=== PATIENT | female | born 1975 | race Caucasian/White ===

== ENCOUNTER 2021-09-24 16:39 | Outpatient (CLI) | payer OTHER ==
[2021-09-24 18:01] LABS: Hemoglobin 13.2 g/dL (12.0-15.5); Mean Corpuscular Hemoglobin 30.2 pg (27.0-33.0); Mean Corpuscular Volume 91.5 fl (81.6-98.3); Mean Platelet Volume 10.6 fl (7.4-10.4); Platelet Count 361 10x3/uL (150-450); RBC Distribution Width 12.9 % (11.5-14.5); Red Blood Cell (RBC) Count 4.37 10x6/uL (3.90-5.03); White Blood Cell (WBC) Count 10.3 10x3/uL (3.5-10.5)
[2021-09-24 18:04] LABS: BHCG - Serum Negative (NEGATIVE); Pregs Control Background? CLEAR/WHITE (CLR/WHITE); Pregs Control Bar Appear? YES (CONTROL BAR)
[2021-09-24 18:12] LABS: Anion Gap 13 mmol/L (10-20); BUN (Urea Nitrogen) 13 mg/dL (7.0-18.7); Calc. Creatinine Clearance 0 mL/min (70-130); Calcium 9.1 mg/dL (7.8-10.44); Carbon Dioxide 22 mmol/L (22-29); Chloride 108 mmol/L (98-107); Glucose 83 mg/dL (70-105); Potassium 4.3 mmol/L (3.5-5.1); Sodium 139 mmol/L (136-145)
[2021-09-25 01:56] LABS: SARS-CoV-2 PCR by NAA Not Detected (NotDetected)
== END 2021-09-24 16:40 | disposition home or self-care (01) ==
LOC: CSHLAB 16:39
PROVIDERS: ATTEND Podiatrist Foot & Ankle Surgery
DX: Z01.812 Encounter for preprocedural laboratory examination (principal); Z20.822 Contact with and (suspected) exposure to COVID-19
CPT/HCPCS: 80048; 84703; 85027; 93005; 93010; U0003; U0005

== ENCOUNTER 2021-09-29 11:55 | Day surgery (SDC) | payer OTHER ==
[2021-09-26 12:26] VITALS: BMI 45.4
[2021-09-29] MEDS ORDERED: Lidocaine 1% MPF 2 ML VIAL ONE (12:29)
[2021-09-29] MEDS ORDERED: Bupivacaine PF 0.5% 30 ML VIAL ONE (13:19)
[2021-09-29] MEDS ORDERED: Neomycin-Polymyxin 1 ML AMP ONE (13:24)
[2021-09-29] MEDS ORDERED: Fentanyl 100 MCG/2 ML VIAL ONE (13:33)
[2021-09-29] MEDS ORDERED: PROPOFOL 20 ML ONE ×2 (13:33→14:42)
[2021-09-29] MEDS ORDERED: Midazolam HCl 2 mg/2 ml Vial ONE (13:33)
[2021-09-29] MEDS ORDERED: CEFAZOLIN 1 GM VIAL ONE ×3 (13:35→13:36)
[2021-09-29] MEDS ORDERED: HYDROmorphone 0.5 MG/0.5 ML SYRINGE ONE (13:36)
[2021-09-29] MEDS ORDERED: Lidocaine 2% PF 100 mg/5 ml Syringe ONE (13:41)
[2021-09-29] MEDS ORDERED: Ondansetron PF 4 MG/2 ML Vial IVP PRN (13:45)
[2021-09-29] MEDS ORDERED: Zolpidem Tartrate 5 MG TAB PO PRN (13:45)
[2021-09-29] MEDS ORDERED: Ropivacaine 0.2% 550 ML 550 ML NERVE BLCK SCH (13:45)
[2021-09-29] MEDS ORDERED: Promethazine HCl 25 MG/ML VIAL IM PRN (13:45)
[2021-09-29] MEDS ORDERED: Ondansetron PF 4 MG/2 ML Vial ONE (14:15)
[2021-09-29] MEDS ORDERED: Dexamethasone 20 MG/5 ML VIAL ONE (14:15)
[2021-09-29] MEDS ORDERED: PHENYLEPHRINE-NS 100 MCG/ML 10 ML SYRINGE ONE (14:22)
[2021-09-29] MEDS ORDERED: Rocuronium Bromide 10 MG/ML (10ML VIAL) ONE (14:23)
[2021-09-29] MEDS ORDERED: Metoclopramide HCl 10 MG/2 ML VIAL ONE (14:25)
[2021-09-29] MEDS ORDERED: Ketorolac Tromethamine 30 MG/ML VIAL ONE (14:49)
== END 2021-09-29 16:40 | disposition home or self-care (01) ==
LOC: CSHSDC 11:55
PROVIDERS: ATTEND Podiatrist Foot & Ankle Surgery
PROC: 0QBM0ZZ Excision of Left Tarsal, Open Approach (ICD-10-PCS; principal; 2021-09-29)
DX: M92.62 Juvenile osteochondrosis of tarsus, left ankle (principal); M77.32 Calcaneal spur, left foot; M76.62 Achilles tendinitis, left leg; Z79.899 Other long term (current) drug therapy; Z90.49 Acquired absence of other specified parts of digestive tract
CPT/HCPCS: C1713; J0690; J1100; J1170; J1885; J2001; J2250; J2405; J2550; J2704; J2765; J3010; S0020